=== PATIENT | male | born 1955 | race Caucasian/White ===

== ENCOUNTER 2018-10-25 05:32 | Day surgery (SDC) | payer OTHER ==
[~2018-10-25] VITALS: Ht 157.5 cm; Wt 83.9 kg
[2018-10-25] MEDS ORDERED: ASPI-1205 PO (07:16)
[2018-10-25] MEDS ORDERED: HYDR-3298 PO (07:16)
[2018-10-25] MEDS ORDERED: CARV12.5 PO (07:16)
[2018-10-25] MEDS ORDERED: METF1000 PO (07:16)
[2018-10-25] MEDS ORDERED: ATOR40TA PO (07:16)
[2018-10-25] MEDS ORDERED: BUPIVACAINE-MPF 0.25% 30 ML VIAL INJ ONE (08:03)
[2018-10-25] MEDS ORDERED: ceFAZolin 1,000 MG VIAL ONE (08:03)
[2018-10-25] MEDS ORDERED: SEVOFLURANE 250 ML BTL INH ONE (08:35)
[2018-10-25] MEDS ORDERED: ROCURONIUM 50 MG/5 ML VIAL IV ONE (08:35)
[2018-10-25] MEDS ORDERED: DEXAMETHASONE 4 MG/ML VIAL ONE (08:35)
[2018-10-25] MEDS ORDERED: SUCCINYLCHOLINE CHLORIDE 200 MG/10 ML VIAL IVP ONE (08:35)
[2018-10-25] MEDS ORDERED: ONDANSETRON 4 MG/2 ML VIAL ONE (08:35)
[2018-10-25] MEDS ORDERED: KETOROLAC 30 MG/ML VIAL ONE (08:35)
[2018-10-25] MEDS ORDERED: MIDAZOLAM 2 MG/2 ML VIAL ONE (08:48)
[2018-10-25] MEDS ORDERED: fentaNYL 0.05 MG/ML VIAL ONE (08:48)
[2018-10-25] MEDS ORDERED: MEPERIDINE 50 MG/ML SYR ONE (08:49)
[2018-10-25] MEDS ORDERED: NACL 0.9% 1,000 ML IV SCH ×2 (09:16→10:08)
[2018-10-25] MEDS ORDERED: HYDROmorphone 1 MG/ML AMP IVP PRN ×2 (09:20→10:10)
[2018-10-25] MEDS ORDERED: BLOOD GLUCOSE MONITORING 1 DEV DEV FS SCH (09:20)
[2018-10-25] MEDS ORDERED: diphenhydrAMINE 50 MG/ML VIAL IVP PRN (09:20)
[2018-10-25] MEDS ORDERED: MEPERIDINE 25 MG/ML SYR IVP PRN (09:20)
[2018-10-25] MEDS ORDERED: ONDANSETRON 4 MG/2 ML VIAL IVP PRN (09:20)
[2018-10-25] MEDS ORDERED: ONDANSETRON 4 MG/2 ML VIAL IV PRN (10:10)
[2018-10-25] MEDS ORDERED: MORPHINE SULFATE 4 MG/ML SYR IV PRN (10:10)
[2018-10-25] MEDS ORDERED: ACETAMINOPHEN 325 MG TAB PO PRN (10:10)
[2018-10-25] MEDS ORDERED: MORPHINE SULFATE 2 MG/ML SYR IVP PRN (10:10)
== END 2018-10-25 11:45 | disposition home or self-care (01) ==
LOC: MDS 05:32 → MMU 05:58 → MDS 11:45
PROVIDERS: ATTEND Surgery
DX: K43.9 Ventral hernia without obstruction or gangrene (principal); I10 Essential (primary) hypertension; E11.40 Type 2 diabetes mellitus with diabetic neuropathy, unspecified; I25.10 Atherosclerotic heart disease of native coronary artery without angina pectoris; E78.5 Hyperlipidemia, unspecified; Z98.890 Other specified postprocedural states; Z79.01 Long term (current) use of anticoagulants; Z95.0 Presence of cardiac pacemaker; Z79.82 Long term (current) use of aspirin; Z79.899 Other long term (current) drug therapy; Z79.84 Long term (current) use of oral hypoglycemic drugs; Z95.818 Presence of other cardiac implants and grafts
CPT/HCPCS: 49560; 49568; 71045; 93005; C1781; J0330; J0690; J1100; J1885; J2175; J2250; J2405; J3010; J3490; J7030; J7060